=== PATIENT | male | born 1970 | race Caucasian/White ===

== ENCOUNTER 2016-07-31 | Outpatient (CLI) | payer SELFPAY | END 2016-07-31 01:53 | disposition EMS.NT ==

== ENCOUNTER 2017-12-28 22:29 | Outpatient (CLI) | payer BC | END 2017-12-28 22:30 | disposition short-term general hospital (02) | LOC: EMS 22:29 | PROVIDERS: ATTEND Surgery | DX: R07.9 Chest pain, unspecified (principal) | CPT/HCPCS: A0425; A0427 ==

== ENCOUNTER 2018-05-28 13:35 | Outpatient (CLI) | payer BC | END 2018-05-28 13:36 | disposition EMS.NT | LOC: EMS 13:35 | PROVIDERS: ATTEND Surgery | DX: R00.0 Tachycardia, unspecified (principal); R42 Dizziness and giddiness ==

== ENCOUNTER 2019-11-19 07:41 | Outpatient (CLI) | payer BC | END 2019-11-19 07:42 | disposition short-term general hospital (02) | LOC: EMS 07:41 | PROVIDERS: ATTEND Surgery | DX: R07.9 Chest pain, unspecified (principal); R61 Generalized hyperhidrosis | CPT/HCPCS: A0425; A0427 ==

== ENCOUNTER 2020-04-17 15:50 | Outpatient (CLI) | payer BC ==
[2020-04-17 16:19] LABS: CREATININE 0.7 mg/dL (0.6-1.2)
== END 2020-04-17 15:51 | disposition home or self-care (01) ==
LOC: LAB 15:50
PROVIDERS: ATTEND Internal Medicine Cardiovascular Disease
DX: I71.1 Thoracic aortic aneurysm, ruptured (principal); R07.89 Other chest pain; R00.0 Tachycardia, unspecified; I10 Essential (primary) hypertension
CPT/HCPCS: 82565